=== PATIENT | female | born 2000 | race African-American/Black ===

== ENCOUNTER 2024-09-01 21:29 | Emergency (ER) | payer MEDICAID ==
[~2024-09-01] VITALS: Ht 154.9 cm; Wt 55.0 kg
[2024-09-01 21:45] VITALS: O2SAT 100
[2024-09-01 22:14] VITALS: BP 100/42; PULSE 86; RESP 16; TEMP 97.8; O2SAT 100
== END 2024-09-02 01:21 | disposition left against medical advice (07) ==
LOC: ER 21:29
DX: R51.9 Headache, unspecified (principal); Z53.21 Procedure and treatment not carried out due to patient leaving prior to being seen by health care provider